=== PATIENT | female | born 1960 | race Caucasian/White ===

== ENCOUNTER 2019-10-26 08:00 | Outpatient (CLI) | payer BC, MEDICARE, OTHER | END 2019-10-26 23:59 | disposition home or self-care (01) | LOC: STAR 08:00 | PROVIDERS: ATTEND Thoracic Surgery (Cardiothoracic Vascular Surgery) | DX: Z01.818 Encounter for other preprocedural examination (principal); Z11.59 Encounter for screening for other viral diseases | CPT/HCPCS: 36415; 87635 ==

== ENCOUNTER 2019-11-03 10:20 | Day surgery (SDC) | payer BC, MEDICARE, OTHER ==
[~2019-11-03] VITALS: Ht 160 cm; Wt 55.0 kg
[~2019-11-03 10:20] MED LIST: BUPIVACAINE/PF-EPI 0.5% 1:200K ONE
[2019-11-03] MEDS ORDERED: LACTATED RINGERS 1,000 ML IV SCH ×2 (11:26→14:00)
[2019-11-03] MEDS ORDERED: CHLORHEXIDINE 15 ML UDC MM ONE (11:30)
[2019-11-03] MEDS ORDERED: LEVO25TA4 PO (11:32)
[2019-11-03] MEDS ORDERED: OMEP-110 PO (11:32)
[2019-11-03] MEDS ORDERED: ESZO2TAB22 PO (11:32)
[2019-11-03] MEDS ORDERED: FLUO90CA5 PO (11:32)
[2019-11-03] MEDS ORDERED: LACT1CAP20 PO (11:32)
[2019-11-03] MEDS ORDERED: ONDA8TAB16 SL (11:32)
[2019-11-03] MEDS ORDERED: METO10TA2 PO (11:32)
[2019-11-03] MEDS ORDERED: LISI-167 PO (11:32)
[2019-11-03] MEDS ORDERED: ROSU20TA2 PO (11:32)
[2019-11-03] MEDS ORDERED: METO25TA35 PO (11:58)
[2019-11-03 12:33] VITALS: BP 124/61
[2019-11-03] MEDS ORDERED: FENTANYL PF 250 MCG/5ML ONE (12:39)
[2019-11-03] MEDS ORDERED: MIDAZOLAM 1 MG/ML, 2ML ONE (12:39)
[2019-11-03] MEDS ORDERED: DEXAMETHASONE 4 MG/ML, 1ML ONE (13:00)
[2019-11-03] MEDS ORDERED: ONDANSETRON 2MG/ML, 2ML ONE (13:00)
[2019-11-03] MEDS ORDERED: PROPOFOL 10 MG/ML, 20ML ONE (13:00)
[2019-11-03] MEDS ORDERED: CEFAZOLIN 1,000 MG ONE (13:00)
[2019-11-03] MEDS ORDERED: GLYCOPYRROLATE 0.2MG/1ML, 5ML ONE (13:00)
[2019-11-03] MEDS ORDERED: NEOSTIGMINE 1 MG/ML, 10ML ONE (13:00)
[2019-11-03] MEDS ORDERED: ROCURONIUM 10MG/ML,5ML ONE (13:00)
[2019-11-03] MEDS ORDERED: SUCCINYLCHOLINE 20 MG/ML, 10ML ONE (13:00)
[2019-11-03] MEDS ORDERED: KETOROLAC 30 MG/1 ML ONE (13:23)
[2019-11-03] MEDS ORDERED: SUGAMMADEX 200 MG/2 ML IVPush ONE (13:23)
[2019-11-03] MEDS ORDERED: OXYcodone 5 MG/5 ML ORAL.SOL UDC PO PRN (13:30)
[2019-11-03] MEDS ORDERED: MEPERIDINE/PF 25MG/0.5ML IVPush PRN (13:30)
[2019-11-03] MEDS ORDERED: hydrALAzine 20 MG/ML, 1ML IV PRN (13:30)
[2019-11-03] MEDS ORDERED: PROMETHAZINE 25 MG/ML, 1ML IV PRN (13:30)
[2019-11-03] MEDS ORDERED: HYDROmorphone 2 MG/ML, 1ML IVPush PRN (13:30)
[2019-11-03] MEDS ORDERED: LABETALOL 5MG/ML, 20ML IV PRN (13:30)
[2019-11-03] MEDS ORDERED: ACETAMINOPHEN 325 MG TABLET PO PRN (13:30)
[2019-11-03] MEDS ORDERED: ALBUTEROL SULFATE 2.5 MG/3 ML NPPB PRN (13:30)
[2019-11-03] MEDS ORDERED: DIAZEPAM 5 MG/ML, 2ML ONE (13:39)
[2019-11-03] MEDS ORDERED: FENTANYL PF 100 MCG/2ML ONE (13:39)
[2019-11-03] MEDS: FENTANYL PF 100 MCG/2ML IV PRN ×2 (13:42→14:00)
[2019-11-03] MEDS: DIAZEPAM 5 MG/ML, 2ML IVPush PRN ×2 (13:44→13:55)
[2019-11-03] MEDS ORDERED: PROMETHAZINE 25 MG/ML, 1ML ONE (13:59)
[2019-11-03] MEDS ORDERED: MEPERIDINE/PF 25MG/ML,1ML ONE (14:00)
[2019-11-03] MEDS ORDERED: morphine SULFATE 10 MG/ML, 1ML IVPush PRN (14:00)
[2019-11-03] MEDS ORDERED: ONDANSETRON 2MG/ML, 2ML IVPush PRN (14:00)
[2019-11-03] MEDS ORDERED: HYDROcodone/APAP 7.5-325MG/15ML UDC JT PRN (14:00)
== END 2019-11-03 18:00 | disposition home or self-care (01) ==
LOC: OUT 10:20
PROVIDERS: ATTEND Thoracic Surgery (Cardiothoracic Vascular Surgery)
DX: R11.10 Vomiting, unspecified (principal); I10 Essential (primary) hypertension; E78.5 Hyperlipidemia, unspecified; K21.9 Gastro-esophageal reflux disease without esophagitis; Z90.49 Acquired absence of other specified parts of digestive tract; Z98.890 Other specified postprocedural states; Z90.710 Acquired absence of both cervix and uterus; Z79.899 Other long term (current) drug therapy; Z91.040 Latex allergy status; Z88.2 Allergy status to sulfonamides; Z88.1 Allergy status to other antibiotic agents; Z87.891 Personal history of nicotine dependence; Z82.49 Family history of ischemic heart disease and other diseases of the circulatory system; Z83.3 Family history of diabetes mellitus
CPT/HCPCS: 44186; B4087; J0690; J1100; J1885; J2175; J2250; J2405; J2550; J2704; J3010; J3360; J7120; 36415; 87635; J2710; J0330